=== PATIENT | female | born 1980 | race Two or more races ===

== ENCOUNTER 2020-02-20 10:55 | Emergency (ER) | payer OTHER ==
[~2020-02-20] VITALS: Ht 167.6 cm; Wt 68.0 kg
[2020-02-20] MEDS ORDERED: ORPHENADRINE C100 MG PO (13:01)
[2020-02-20] MEDS ORDERED: KETO10TA2 PO (13:01)
== END 2020-02-20 13:16 | disposition home or self-care (01) ==
LOC: ER 10:55
DX: S93.492A Sprain of other ligament of left ankle, initial encounter (principal); S90.412A Abrasion, left great toe, initial encounter; W23.0XXA Caught, crushed, jammed, or pinched between moving objects, initial encounter; Y93.01 Activity, walking, marching and hiking; Y92.832 Beach as the place of occurrence of the external cause; Y99.8 Other external cause status

== ENCOUNTER 2020-07-28 13:50 | Emergency (ER) | payer OTHER ==
[~2020-07-28] VITALS: Ht 167.6 cm; Wt 72.6 kg
[~2020-07-28 13:50] MED LIST: KETO10TA2 PO; ORPHENADRINE C100 MG PO
[2020-07-28] MEDS ORDERED: IMITREX100 MG (14:02)
[2020-07-28] MEDS ORDERED: SYMBICORT 16010.2 GM (14:03)
[2020-07-28] MEDS ORDERED: PROAIR HFA8.5 GM (14:03)
== END 2020-07-28 17:10 | disposition home or self-care (01) ==
LOC: ER 13:50
DX: R53.81 Other malaise (principal); Z03.818 Encounter for observation for suspected exposure to other biological agents ruled out

== ENCOUNTER 2021-06-17 10:05 | Emergency (ER) | payer OTHER ==
[~2021-06-17] VITALS: Ht 167.6 cm; Wt 76.2 kg
[~2021-06-17 10:05] MED LIST changes: +IMITREX100 MG; +PROAIR HFA8.5 GM; +SYMBICORT 16010.2 GM
== END 2021-06-17 12:53 | disposition home or self-care (01) ==
LOC: ER 10:05
DX: J06.9 Acute upper respiratory infection, unspecified (principal); R09.81 Nasal congestion; R05.9 Cough, unspecified